=== PATIENT | female | born 1975 | race African-American/Black ===

== ENCOUNTER 2017-07-03 07:45 | Inpatient (IN) | payer OTHER ==
[2017-07-03 08:32] VITALS: BMI 25.8
[2017-07-03 09:05] LABS: BASOPHIL 0.6 % (0-2.0); EOSINOPHIL 0.4 % (0-4.5); MCH 30.4 pg (25.7-33.7); MCHC 33.9 g/dl (32.0-36.0); MEAN CELL VOLUME 89.7 fl (80-96); MEAN PLT VOLUME 9.7 fl (7.5-11.1); NEUTROPHILS 80.6 % (42.8-82.8); PLATELET COUNT 166 K/MM3 (134-434); RDW 14.4 % (11.6-15.6); WHITE BLOOD COUNT 12.6 K/mm3 (4.0-10.0)
[2017-07-03 09:25] LABS: INR 0.96 (0.82-1.09); PROTHROMBIN TIME (PATIENT) 10.9 SEC (9.98-11.88)
[2017-07-03 09:28] LABS: ACTIVATED PTT 23.1 SECONDS (26.9-34.4)
[2017-07-03 09:37] LABS: ANION GAP 14 (8-16); CALCIUM 8.6 mg/dL (8.5-10.1); CO2 20 mmol/L (21-32); CREATININE 0.8 mg/dL (0.55-1.02); GLUCOSE,RANDOM 78 mg/dL (74-106)
[2017-07-03] MEDS: DEXTROSE 5%-LACTATED RINGERS 1,000 ML IV SCH ×2 (10:15→18:30)
[2017-07-03] MEDS ORDERED: OXYTOCIN 15 UNITS/ LR 250 ML 250 ML IVPB SCH ×2 (17:15→18:45)
--- NOTE | 2017-07-03 18:36 | HP ---
Past Medical History - Primary Care Physician PCP:: [facility] - Admission Chief Complaint: 37 weeks, PROM. AMA History of Present Illness: 8am 41 yo f ,37 weeks, with prom since this am, no bleeding, no fever, cx 1 cm ,50 vx, mr, gross leakage, nitrazine positve, fhr cat i, irregular mild contraction History Source: Patient Limitations to Obtaining History: No Limitations - Past Medical History ...: 4 ...Para: 3 ...Term: 3 ...: 0 ...Spon : 0 ...Induced : 0 ...Multiple Gestation: 0 ...LMP: 10/17/16 ... Weeks Gestation by Dates: 37.0 ...EDC by Dates: 07/24/17 ...EDC by Sono: 07/25/17 - Past Surgical History Hx Myomectomy: No Hx Transabdominal Cerclage: No - Smoking History Smoking history: Never smoked Have you smoked in the past 12 months: No - Alcohol/Substance Use Hx Alcohol Use: No - Social History Usual Living Arrangement: Yes: With Spouse History of Recent Travel: No Home Medications - Allergies Allergies/Adverse Reactions: Allergies Allergy/AdvReac Type Severity Reaction Status Date / Time amoxicillin trihydrate Allergy Severe Swelling Verified 07/03/17 08:07 [From Augmentin] potassium clavulanate Allergy Severe Swelling Verified 07/03/17 08:07 [From Augmentin] - Home Medications Home Medications: Ambulatory Orders Vit/Iron Fumarate/FA [ Tablet] 1 each PO DAILY 07/03/17 Review of Systems - Review of Systems Constitutional: reports: No Symptoms Eyes: reports: No Symptoms HENT: reports: No Symptoms Neck: reports: No Symptoms Cardiovascular: reports: No Symptoms Respiratory: reports: No Symptoms Gastrointestinal: reports: No Symptoms Genitourinary: reports: Frequency Breasts: reports: No Symptoms Reported Musculoskeletal: reports: No Symptoms Integumentary: reports: No Symptoms Neurological: reports: No Symptoms Endocrine: reports: No Symptoms Physical Exam - Maternity Vital Signs: Vital Signs Temperature 97.8 F 07/03/17 18:00 Pulse Rate 85 07/03/17 18:00 Respiratory Rate 20 07/03/17 18:00 Blood Pressure 92/57 07/03/17 18:00 O2 Sat by Pulse Oximetry (%) Constitutional: Yes: Well Nourished, No Distress, Calm Eyes: Yes: WNL, Conjunctiva Clear, EOM Intact HENT: Yes: WNL, Atraumatic, Normocephalic Neck: Yes: WNL, Supple, Trachea Midline Cardiovascular: Yes: WNL, Regular Rate and Rhythm Breast(s): Yes: WNL - Abdominal Exam/OB Fundal Height: 38 Number of Fetuses: Single Presentation: Vertex Contractions: Yes Regularity: Irregular Intensity: Moderate Monitor Mode: External Heart Rate Location: [facility] Category: I Accelerations: Uniform Decelerations: None - Vaginal Exam/OB Vaginal Bleediing: No Speculum Exam: Yes Dilatation (cm): 1 cm Effacement (%): 50 Amniotic Membrane Status: Ruptured Nitrazine Test: Positive Amniotic Fluid: Yes: Clear Presentation: Vertex/Position Station: -3 - Physical Exam Musculoskeletal: Yes: WNL Extremities: Yes: WNL Edema: No Deep Tendon Reflex Grade: Normal +2 - Labs Lab Results: CBC, BMP 07/03/17 08:35 07/03/17 08:35 Hemorrhage Risk Assessment - Risk Factors Medium Risk Factors: Yes: Multiple gestation Risk Score: 1 Risk Level: Medium Risk Problem List - Problems (1) with 37 or more completed weeks gestation Code(s): [id number] - (2) Premature rupture of membranes (PROM), onset of labor within 24 hours, delivered, Code(s): O42.019 - PRETRM ANNA ROM, ONSET LABOR W/N 24 HOURS OF RUPT, UNSP TRI (3) AMA (advanced maternal age) multigravida 35+ Code(s): O09.529 - SUPERVISION OF ELDERLY MULTIGRAVIDA, UNSPECIFIED TRIMESTER Qualifiers: Trimester: third trimester Qualified Code(s): O09.523 - Supervision of elderly multigravida, third trimester; O09.523 - Supervision of elderly multigravida, third trimester Assessment/Plan expectant management vs pitocin induction ,rba discussed ,wants to be observed , monitor FHR,
--- NOTE | 2017-07-03 18:40 | PN ---
Progress Note (short form) - Note Progress Note: irregular contractions, fhr cat 1, requesting pitocin Problem List - Problems (1) with 37 or more completed weeks gestation Code(s): [id number] - (2) Premature rupture of membranes (PROM), onset of labor within 24 hours, delivered, Code(s): O42.019 - PRETRM ANNA ROM, ONSET LABOR W/N 24 HOURS OF RUPT, UNSP TRI (3) AMA (advanced maternal age) multigravida 35+ Code(s): O09.529 - SUPERVISION OF ELDERLY MULTIGRAVIDA, UNSPECIFIED TRIMESTER Qualifiers: Trimester: third trimester Qualified Code(s): O09.523 - Supervision of elderly multigravida, third trimester; O09.523 - Supervision of elderly multigravida, third trimester
[2017-07-03] MEDS: CLINDAMYCIN 600MG PREMIX IVPB 50 ML IVPB SCH (20:00)
[2017-07-03] MEDS ORDERED: BUTORPHANOL TARTRATE 1 MG/ML VIAL IVPB PRN (20:01)
[2017-07-03] MEDS ORDERED: PROMETHAZINE HCL 25 MG/1 ML VIAL IVPB PRN (20:02)
[2017-07-03] MEDS ORDERED: CLINDAMYCIN 600MG PREMIX IVPB 50 ML IVPB SCH (21:00)
--- NOTE | 2017-07-04 00:19 | PN ---
Progress Note, Labor Vaginal Exam #1 Labor Exam Date: 07/04/17 Labor Exam Time: 00:17 Heart Rate (range): 140 mod variability; variables/early decels Dilatation: 4 Effacement (%): 60 Amniotic Membrane Status: Ruptured Presentation: Vertex/Position Station: -2 (pt with PROM at 37 weeks gestation pitocin held IUPC and amnioinfusion; will reassess)
[2017-07-04] MEDS: CLINDAMYCIN 600MG PREMIX IVPB 50 ML IVPB SCH (01:38)
[2017-07-04] MEDS ORDERED: BISACODYL 10 MG SUPP.RECT RC PRN (02:00)
[2017-07-04] MEDS ORDERED: BENZOCAINE 28 GM HEMORRHOIDAL OINTMENT TP PRN (02:00)
[2017-07-04] MEDS ORDERED: WITCH HAZEL 50% (TUCKS) 40 PAD/JAR PAD TP PRN (02:00)
[2017-07-04] MEDS ORDERED: oxyCODONE HCL 5 MG TABLET PO PRN (02:00)
[2017-07-04] MEDS ORDERED: METHYLERGONOVINE MALEATE 0.2 MG/1 ML AMP IM PRN (02:00)
[2017-07-04] MEDS ORDERED: BENZOCAINE 20% 57 GM BOTTLE TP PRN (02:00)
[2017-07-04] MEDS ORDERED: D5W-LR W/ 20 UNITS OXYTOCIN 1,000 ML IV SCH (02:00)
--- NOTE | 2017-07-04 02:00 | PN ---
Delivery - Delivery Vaginal Delivery: No Problems Type of Anesthesia: None Episiotomy/Laceration: None EBL (cc): 350 Delivery, Single - Stages of Labor Date of Delivery: 07/04/17 Date Placenta Delivered: 07/04/17 Placenta: Yes: Spontaneous, Normal Configuration - Condition of Infant Gender: Female Position: Left, OA - 1 Minute Total Score: 9 5 Minutes Total Score: 9 - Feeding Plan Initial Plan: Exclusive throughout hospitalization Remarks - Remarks Remarks: Pt fully dilated and pushing, delivered viable female infant from WALKER cephalic presentation over intact perineum. Nuchal cord x1 easily reduced. Anterior shoulder and body delivered spontaneously and without difficulty. Placenta delivered intact with 3vc. No lacerations. Fundus firm. Vault empty. Mother stable. Baby to wbn.
[2017-07-04] MEDS: ACETAMINOPHEN 325 MG TABLET (FP) PO PRN (03:33)
[2017-07-04] MEDS: IBUPROFEN 600 MG TABLET (FP) PO PRN (03:33)
[2017-07-04] MEDS: PRENATAL VITAMINS W/ FOLIC ACID TABLET (FP) PO SCH (09:36)
[2017-07-05] MEDS: IBUPROFEN 600 MG TABLET (FP) PO PRN (04:51)
[2017-07-05] MEDS: ACETAMINOPHEN 325 MG TABLET (FP) PO PRN (04:52)
[2017-07-05 07:57] LABS: BASOPHIL 0.5 % (0-2.0); EOSINOPHIL 0.6 % (0-4.5); MCH 31.3 pg (25.7-33.7); MCHC 34.3 g/dl (32.0-36.0); MEAN CELL VOLUME 91.1 fl (80-96); MEAN PLT VOLUME 9.8 fl (7.5-11.1); NEUTROPHILS 78.2 % (42.8-82.8); PLATELET COUNT 173 K/MM3 (134-434); RDW 14.3 % (11.6-15.6)
--- NOTE | 2017-07-05 08:03 | PN ---
Progress Note (short form) - Note Progress Note: ppd 1 doing well, no c/o uterus firm, non tender lochia mild no calf tenderness plan ambulate, cbc . d/c home in am Problem List - Problems (1) with 37 or more completed weeks gestation Code(s): [id number] - (2) Premature rupture of membranes (PROM), onset of labor within 24 hours, delivered, Code(s): O42.019 - PRETRM ANNA ROM, ONSET LABOR W/N 24 HOURS OF RUPT, UNSP TRI (3) AMA (advanced maternal age) multigravida 35+ Code(s): O09.529 - SUPERVISION OF ELDERLY MULTIGRAVIDA, UNSPECIFIED TRIMESTER Qualifiers: Trimester: third trimester Qualified Code(s): O09.523 - Supervision of elderly multigravida, third trimester; O09.523 - Supervision of elderly multigravida, third trimester
[2017-07-05] MEDS: PRENATAL VITAMINS W/ FOLIC ACID TABLET (FP) PO SCH (09:55)
[2017-07-05] MEDS ORDERED: DIPHTH,PERTUSS(ACELL),TET 0.5 ML DISP.SYRIN IM ONE ×2 (10:00→19:15)
[2017-07-05] MEDS ORDERED: SENNOSIDES/DOCUSATE COMBO (SENNA PLUS) TABLET (UD) PO PRN (22:00)
--- NOTE | 2017-07-06 06:25 | PN ---
Post Progress Note Type of Delivery: Vital Signs: Vital Signs Temperature 98.2 F 07/05/17 22:00 Pulse Rate 72 07/05/17 22:00 Respiratory Rate 20 07/05/17 22:00 Blood Pressure 109/66 07/05/17 22:00 O2 Sat by Pulse Oximetry (%) 100 07/04/17 02:45 Breast Exam: Yes: Soft Uterus: Yes: Fundus Firm Abdomen/GI: Yes: Abdomen soft Lochia: Yes: Rubra Lochia, amount: Small Extremities: Yes: Calves non-tender Perineum: Yes: Intact Activity: Ambulating - Labs Labs: CBC WBC 15.0 K/mm3 (4.0-10.0) H 07/05/17 06:30 RBC 3.35 M/mm3 (3.60-5.2) L 07/05/17 06:30 Hgb 10.5 GM/dL (10.7-15.3) L 07/05/17 06:30 Hct 30.5 % (32.4-45.2) L 07/05/17 06:30 MCV 91.1 fl (80-96) 07/05/17 06:30 MCH 31.3 pg (25.7-33.7) 07/05/17 06:30 MCHC 34.3 g/dl (32.0-36.0) 07/05/17 06:30 RDW 14.3 % (11.6-15.6) 07/05/17 06:30 Plt Count 173 K/MM3 (134-434) 07/05/17 06:30 MPV 9.8 fl (7.5-11.1) 07/05/17 06:30 Neutrophils % 78.2 % (42.8-82.8) 07/05/17 06:30 Lymphocytes % 14.5 % (8-40) 07/05/17 06:30 Monocytes % 6.2 % (3.8-10.2) 07/05/17 06:30 Eosinophils % 0.6 % (0-4.5) 07/05/17 06:30 Basophils % 0.5 % (0-2.0) 07/05/17 06:30 Assessment/Plan as above oob dc home
[2017-07-06] MEDS: PRENATAL VITAMINS W/ FOLIC ACID TABLET (FP) PO SCH (09:31)
[2017-07-06 10:19] VITALS: BP 107/59; PULSE 68; TEMP 98.7
== END 2017-07-06 10:10 | disposition home or self-care (01) | DRG 775 ==
LOC: JLDR 07:45 → J3W 07-04 03:14
PROVIDERS: ADMIT Obstetrics & Gynecology; ATTEND Obstetrics & Gynecology
PROC: 10E0XZZ Delivery of Products of Conception, External Approach (ICD-10-PCS; principal; 2017-07-04)
DX: O42.02 Full-term premature rupture of membranes, onset of labor within 24 hours of rupture (principal); O69.81X0 Labor and delivery complicated by cord around neck, without compression, not applicable or unspecified; Z3A.37 37 weeks gestation of pregnancy; Z37.0 Single live birth
CPT/HCPCS: 36415; 59409; 80048; 85025; 85610; 85730; 86593; 86850; 86900; 86901; 90715